=== PATIENT | female | born 1975 | race Caucasian/White ===

== ENCOUNTER 2024-10-06 10:53 | Emergency (ER) | payer BC, SELFPAY ==
[2024-10-06 11:03] VITALS: BP 145/98; PULSE 70; TEMP 36.7; O2SAT 100; BMI 23.8
--- NOTE | 2024-10-06 11:21 | ED_ITS ---
HPI HPI - General Adult General Chief complaint: Chest Pain Stated complaint: SHORTNESS OF BREATH, TIGHTNESS IN CHEST, TREMORS Time Seen by Provider: 10/06/24 11:21 Source: patient Mode of arrival: walk-in History of Present Illness HPI narrative: Patient is a 48-year-old female who is presenting to the ER with multiple complaints. Patient is having chest tightness to bilateral anterior chest wall, and over the upper mid sternum. Patient has a PCP, licensed clinical social worker in neurologist at [facility] in [place]. Patient has been to the ER several times for these complaints, patient does not like [facility] [place] and states they cannot figure out what is going on so I drove to [place] for another opinion. Patient is currently going through cardiac and neurological testing. Patient is being evaluated for POTS syndrome. Patient states she has had chest tightness for the last 2 days. No nausea. Patient is talking slow, stating that she feels slightly short of breath. She is short shallow guppy breathing, and also complaining of numbness and tingling to her arms, hands and legs secondary to short shallow breathing hyperventilating syndrome. Patient has been told several times that she has anxiety and stress but does not believe it. 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 Patient has no new injury. No recent traveling. No edema. No nausea, vomiting, diarrhea. I did inform the patient that I am a ER physician that works at [facility] and [facility] [place]. I educated her that it is difficult for the emergency room to try and figure out ongoing chronic conditions, but we will be happy to see and evaluate her and rule out any other acute type of pathology secondary to chest tightness for 2 days. All systems are negative except as noted/marked. All systems reviewed and otherwise negative. Nurses note and vital signs reviewed and patient is not hypoxic. General: The patient appears well and in no apparent distress. Patient is resting comfortably on cart. Patient is not toxic, lethargic, or listless Skin: Warm, dry, no pallor noted. There is no rash noted. No petechiae, purpura. Head: Normocephalic, atraumatic Eye: Normal conjunctiva, no drainage, EOMI. PERRL Ears, Nose, Mouth, and Throat: oral mucosa is moist. Nares patent. Mouth without vesicles. Cardiovascular: Regular Rate and Rhythm, no murmur, gallop, rub. Patient does have mild reproducible tenderness palpation to bilateral anterior chest wall. Respiratory: Patient is in no distress, no accessory muscle use, lungs are clear to auscultation, no wheezing, rales or rhonchi Back: non-tender, no CVA tenderness bilaterally to percussion. No CT LS midline pain GI: no tenderness to palpation, no masses appreciated. No rebound, guarding, or rigidity noted. No distention. No midepigastric tenderness to palpation. Musculoskeletal: Patient has full range of motion of all of the extremities, no motor, sensory, or focal neurological deficits Neurological: A&O x4, normal speech Psychiatric: Cooperative Related Data Allergies Allergy/AdvReac Type Severity Reaction Status Date / Time albuterol AdvReac Mild Palpitation Verified 10/06/24 11:02 s atomoxetine AdvReac Mild Rash Verified 10/06/24 11:02 PFSH PFSH Social History Little interest or pleasure in doing things: not at all Feeling down, depressed, or hopeless: not at all Exam Constitutional Vital Signs, click to edit/add: Last Vital Signs Temp 98.0 F 10/06/24 11:03 Pulse 78 10/06/24 12:04 Resp 14 10/06/24 11:03 BP 108/74 10/06/24 12:04 Pulse Ox 100 10/06/24 11:03 O2 Del Method Room Air 10/06/24 11:03 Course Vital Signs Vital signs: Vital Signs Temperature 98.0 F 10/06/24 11:03 Pulse Rate 70 10/06/24 11:03 Respiratory Rate 14 10/06/24 11:03 Blood Pressure 145/98 H 10/06/24 11:03 Pulse Oximetry 100 10/06/24 11:03 Oxygen Delivery Method Room Air 10/06/24 11:03 Temperature 98.0 F 10/06/24 11:03 Pulse Rate 78 10/06/24 12:04 Respiratory Rate 14 10/06/24 11:03 Blood Pressure 108/74 10/06/24 12:04 Pulse Oximetry 100 10/06/24 11:03 Oxygen Delivery Method Room Air 10/06/24 11:03 Medical Decision Making MDM Narrative Medical decision making narrative: Patient seen and examined: Patient had EKG, will have IV, lab work. Patient is orthostatic positive, her heart rate did increase more than 20 points. Patient be given 1 L of IV fluid. Differential diagnosis includes but is not limited to: Orthostasis, dizziness, ACS, MD, POTS syndrome, electrolyte abnormality, dehydration, anxiety, stress, kidney abnormality Diagnostics and management: Patient will have laboratory studies Reevaluation: Approximately 5 to 10 minutes after I left patient's room, she did have IV established. Patient initially was requesting a butterfly IV I explained the patient needs a normal IV site to give IV fluids secondary to positive orthostatics. IV was established by Heide KEBEDE. Patient had contacted Renetta Marino RN, armored transport service manager. Patient states that she no longer wants to be in the ER and wants to leave AGAINST MEDICAL ADVICE. She does not want to go through lab testing, does not want IV fluids. Patient stated that she did not feel that I listened to her and that she is talking slow and having shortness of breath. I thought that we had a very good initial HPI, physical exam. I went back into the room with Renetta Marino RN as a witness during entire discharge discussion. I asked the patient if she had any other acute concerns that we did not discuss. I asked her if she had other symptoms we did not discuss. I talked to her and explained to her the plan again and why would do repeat cardiac testing. Ultimately, patient did not want to have any additional testing. She wanted to be discharged. Patient will leave AGAINST MEDICAL ADVICE. Patient signed out against left medical advice. Renetta Marino had spoken to the patient several times during her leaving AGAINST MEDICAL ADVICE. Shared decision making was done on leaving AGAINST MEDICAL ADVICE with patient, myself, and the Renetta Marino RN at bedside the entire time for discussion. Shared decision making: I discussed with the patient the necessary laboratory findings and radiological findings. Social barriers to healthcare: There are no food insecurities, there is no issue with transportation, there are no insurance barriers. Disposition: I discussed with the patient about leaving AGAINST MEDICAL ADVICE. I recommended patient stay because she needs IV fluids secondary to orthostatics. Patient's orthostatics could be changing secondary to out anomia. Patient is following up with cardiology and neurology. Patient did not give a good reason why she wanted to leave, feeling that she was not listened to, even though me speaking to her several times with Renetta Marino RN as a witness. I did spend approximately 10 to 14 minutes initially during HPI and physical exam, because patient was speaking slow and because she did have a lot of comments and questions and we discussed her recent follow-ups in the last year and the testing she has had the testing she needs to have. Shared decision making was done, patient does have the functional decision- making capacity to leave AGAINST MEDICAL ADVICE. Patient is not under the influence of alcohol or drugs. Patient was pleasant when she left AGAINST MEDICAL ADVICE. The patient is oriented to person, place, and time, demonstrating all osorio elements of capacity to make decisions regarding the medical care offered. The patient speaks coherently and exhibits no evidence of having an altered level of consciousness or alcohol or drug intoxication to a point that would impair ability to delineate a choice. He/she is able to ambulate without difficulty. The patient demonstrates understanding and appreciation of the relevant information of the nature their medical condition, as well as the risks, benefits, and treatment alternatives (including nontreatment), Consequences of refusing care, and can appropriately communicative rational reasoning about their choice of care options. Patient is aware of a suspected diagnosis suggested by history and exam. The risks of refusing recommended care that were disclosed and acknowledged by the patient including , unforeseen complications, neurological dysfunction, permanent mental impairment, loss of limb, loss of sexual function, loss of current lifestyle, worsening chronic condition, long-term disability were disclosed. The patient understands they are welcome to return to the hospital anytime to receive the recommended care or any other care at any time, regardless of their ability to pay for such care. Discharge instructions were provided to the patient along with necessary prescriptions if indicated. Lab Data Lab results reviewed: Yes I reviewed the patient's lab results ECG Data Attestation: I personally reviewed and interpreted this ECG as follows: (EKG interpretation. Normal sinus rhythm at 63 beats a minute. Normal axis deviation. No acute ST elevation, no acute ectopy. QTc 394) Discharge Plan Discharge Stand Alone Forms: Portal Instructions Chief Complaint: Chest Pain Clinical Impression: Chest pain, Left against medical advice, Orthostatic dizziness Patient Disposition: Left Against Medical Advice Time of Disposition Decision: 12:01 Condition: Fair Print Language: Romanian Instructions: Chest Pain (ED), Lightheadedness (ED), Against Medical Advice (ED) Additional Instructions: You are leaving AGAINST MEDICAL ADVICE. Please return back to the ER if you would like additional testing or if you change your mind. Continue to follow-up with your PCP, licensed clinical social worker, or neurologist. The patient is oriented to person, place, and time, demonstrating all osorio elements of capacity to make decisions regarding the medical care offered. The patient speaks coherently and exhibits no evidence of having an altered level of consciousness or alcohol or drug intoxication to a point that would impair ability to delineate a choice. He/she is able to ambulate without difficulty. The patient demonstrates understanding and appreciation of the relevant information of the nature their medical condition, as well as the risks, benefits, and treatment alternatives (including nontreatment), Consequences of refusing care, and can appropriately communicative rational reasoning about their choice of care options. Patient is aware of a suspected diagnosis suggested by history and exam. The risks of refusing recommended care that were disclosed and acknowledged by the patient including , unforeseen complications, neurological dysfunction, permanent mental impairment, loss of limb, loss of sexual function, loss of current lifestyle, worsening chronic condition, long-term disability were disclosed. The patient understands they are welcome to return to the hospital anytime to receive the recommended care or any other care at any time, regardless of their ability to pay for such care. Discharge instructions were provided to the patient along with necessary prescriptions if indicated. Referrals: Vansesa Klein APRN [Primary Care Provider] - 1 week Discharge Date/Time: 10/06/24 12:09
--- NOTE | 2024-10-06 11:23 | ECG_ITS ---
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 Measurements Intervals [place] Rate: 63 P: 61 FL: 154 QRS: 58 QRSD: 96 T: 69 QT: 388 QTc: 394 Interpretive Statements 1100 Sinus rhythm 9110 normal ECG No previous ECG available for comparison Electronically Signed On 10-06-2024 17:34:11 EDT by SALVADOR VELAZQUEZ M.D.
--- NOTE | 2024-10-06 12:02 | PC.NURSE ---
IV d/c with cath intact. Pressure and dressing applied, pt getting dressed.
[2024-10-06 12:04] VITALS: BP 108/74; BP 117/74; BP 91/74; PULSE 104; PULSE 78; PULSE 86
== END 2024-10-06 12:09 | disposition left against medical advice (07) ==
PROVIDERS: Emergency Provider Emergency Medicine; PCP Nurse Practitioner Family
DX: Z53.21 Procedure and treatment not carried out due to patient leaving prior to being seen by health care provider (principal); R07.89 Other chest pain; I95.1 Orthostatic hypotension; R06.02 Shortness of breath
CPT/HCPCS: 80048; 83880; 84484; 93005; 99285